=== PATIENT | female | born 1975 | race Caucasian/White ===

== ENCOUNTER 2017-10-11 09:39 | Emergency (ER) | payer OTHER ==
[2017-10-11 09:45] VITALS: TEMP 98.7; O2SAT 98; BMI 23.8
--- NOTE | 2017-10-11 10:02 | ED PDOC ---
Upper Extremity Pain/Injury Time Seen by Provider: 10/11/17 09:48 Chief Complaint (Nursing): Upper Extremity Problem/Injury Chief Complaint (Provider): Upper Extremity Problem/Injury History Per: Patient History/Exam Limitations: no limitations Onset/Duration Of Symptoms: Days (3), Worse Since (last night) Additional Complaint(s): 42 years old female with history of shoulder calcification and herniated lumbar disc presents to the ED for evaluation of right shoulder pain onset 3 days. Patient reports worsening of pain last night and this morning. She denies any injury, weakness or paresthesia. PMD: non provided Past Medical History Reviewed: Historical Data, Nursing Documentation, Vital Signs Vital Signs: Last Vital Signs Temp 98.7 F 10/11/17 09:49 Pulse 78 10/11/17 09:49 Resp 16 10/11/17 09:49 BP 111/74 10/11/17 09:49 Pulse Ox 98 10/11/17 09:49 - Medical History Other PMH: Shoulder calcification and herniated lumbar disc - Surgical History Surgical History: No Surg Hx - Family History Family History: States: Unknown Family Hx - Home Medications Home Medications: Ambulatory Orders Medication Instructions Recorded Naproxen [Naprosyn] 500 mg PO Q12H #20 tab 10/11/17 traMADol [Ultram] 50 mg PO Q8 #10 tab 10/11/17 - Allergies Allergies/Adverse Reactions: Allergies Allergy/AdvReac Type Severity Reaction Status Date / Time No Known Allergies Allergy Verified 10/11/17 09:49 Review of Systems ROS Statement: Except As Marked, All Systems Reviewed And Found Negative Musculoskeletal: Positive for: Shoulder Pain (Right) Neurological: Negative for: Weakness, Other (paresthesia) Physical Exam - Reviewed Nursing Documentation Reviewed: Yes Vital Signs Reviewed: Yes - Physical Exam Appears: Positive for: Non-toxic, No Acute Distress Head Exam: Positive for: ATRAUMATIC, NORMOCEPHALIC Neck: Positive for: Normal Pulses-Radial (R): 2+ Extremity: Positive for: Normal ROM. Negative for: Tenderness (point tenderness to right shoulder), Deformity (of right shoulder), Swelling (of right shoulder), Other (crepitation) Neurologic/Psych: Positive for: Alert, Oriented. Negative for: Motor/Sensory Deficits - ECG O2 Sat by Pulse Oximetry: 98 (RA) Pulse Ox Interpretation: Normal Medical Decision Making Medical Decision Making: Time: 957 Initial Plan: --Right shoulder x-ray --Toradol 30 mg IM Scribe Attestation: Documented by Laya Vu, acting as a scribe for Tino Valerio MD. Provider Scribe Attestation: All medical record entries made by the Scribe were at my direction and personally dictated by me. I have reviewed the chart and agree that the record accurately reflects my personal performance of the history, physical exam, medical decision making, and the department course for this patient. I have also personally directed, reviewed, and agree with the discharge instructions and disposition. Disposition - Clinical Impression Clinical Impression: Bursitis - Patient ED Disposition Is Patient to be Admitted: No Counseled Patient/Family Regarding: Studies Performed, Diagnosis, Need For Followup - Disposition Referrals: [facility] [place] [Outside] Disposition: Routine/Home Disposition Time: 10:45 Condition: FAIR Prescriptions: Naproxen [Naprosyn] 500 mg PO Q12H #20 tab traMADol [Ultram] 50 mg PO Q8 #10 tab Instructions: Bursitis Forms: [email or web address] (Sudanese)
--- NOTE | 2017-10-11 11:11 | RAD ---
Date of service: 10/11/2017 PROCEDURE: Radiographs of the Right Shoulder HISTORY: Pain COMPARISON: No prior. FINDINGS: BONES: Normal. No fracture. JOINTS: Normal. Glenohumeral and acromioclavicular joints preserved. No significant osteoarthritis. SOFT TISSUES: Normal. OTHER FINDINGS: None. IMPRESSION: Normal radiographs of the right shoulder.
[2017-10-11 11:32] VITALS: BP 114/80; PULSE 80; RESP 18
== END 2017-10-11 11:24 | disposition home or self-care (01) ==
LOC: H.ER 09:39
DX: M75.51 Bursitis of right shoulder (principal)
CPT/HCPCS: 73030; 81025; 96372; 99283; J1885